=== PATIENT | female | born 1950 | race Caucasian/White ===

== ENCOUNTER 2019-04-23 23:08 | Emergency (ER) | payer BC ==
[~2019-04-23] VITALS: Ht 157.5 cm; Wt 54.9 kg
[2019-04-24 02:59] VITALS: BP 146/70
[2019-04-24] MEDS ORDERED: diphenhdrAMINE HCL 25 MG CAP PO ONE (03:45)
== END 2019-04-24 03:54 | disposition home or self-care (01) ==
LOC: ER 23:13
DX: S90.862A Insect bite (nonvenomous), left foot, initial encounter (principal); Z88.2 Allergy status to sulfonamides; Z88.6 Allergy status to analgesic agent; Z91.013 Allergy to seafood; S90.861A Insect bite (nonvenomous), right foot, initial encounter; W57.XXXA Bitten or stung by nonvenomous insect and other nonvenomous arthropods, initial encounter; Y93.89 Activity, other specified; Y92.89 Other specified places as the place of occurrence of the external cause; Y99.8 Other external cause status

== ENCOUNTER 2022-10-16 02:10 | Emergency (ER) | payer BC, OTHER ==
[~2022-10-16] VITALS: Ht 160 cm; Wt 60.0 kg
[2022-10-16 04:17] VITALS: BP 143/77
[2022-10-16] MEDS ORDERED: POLYSOL15 OP (04:18)
== END 2022-10-16 04:23 | disposition home or self-care (01) ==
LOC: ER 02:10
DX: H10.9 Unspecified conjunctivitis (principal); Z79.899 Other long term (current) drug therapy; Z88.2 Allergy status to sulfonamides; Z88.8 Allergy status to other drugs, medicaments and biological substances; Z91.013 Allergy to seafood